=== PATIENT | male | born 1960 | race Caucasian/White ===

== ENCOUNTER → 2022-06-13 | Outpatient (CLI) | payer OTHER ==
[2022-06-13 17:13] LABS: African American GFR (CKD) >90 (>60 ml/min/1.73 sqM); Blood Urea Nitrogen 19 mg/dL (9-20); Non-African American GFR(CKD) 87 (>60 ml/min/1.73 sqM)
--- NOTE | 2022-06-14 08:52 | CT ---
EXAMINATION TYPE: CT abdomen pelvis w con CT DLP: 1116 mGycm, Automated exposure control for dose reduction was used. DATE OF EXAM: 06/13/2022 5:41 PM COMPARISON: None CLINICAL INDICATION:Male, 62 years old with history of R63.4 WEIGHT LOSS; weight loss and loss of freya etite x6 months. TECHNIQUE: Axial CT of the abdomen and pelvis. Sagittal and coronal reformats were created on a [employer] workstation. Contrast used:100 mL of Isovue 370 with IV Contrast, Oral contrast used: without Oral Contrast FINDINGS: LOWER CHEST: Unremarkable ABDOMEN LIVER: Unremarkable GALLBLADDER AND BILE DUCTS: Layering increased densities within the lumen consistent with gallstones are present. PANCREAS: Unremarkable. SPLEEN: Unremarkable. ADRENAL GLANDS: Left adrenal gland indeterminate nodule measuring 15 mm KIDNEYS AND URETERS: No evidence of hydronephrosis or renal calculus. The ureters are unremarkable. PELVIS BLADDER: Unremarkable REPRODUCTIVE: Unremarkable. ABDOMEN & PELVIS STOMACH AND BOWEL: No evidence of bowel obstruction. Appendix is normal. Scattered clonic diverticula present. PERITONEUM: No evidence of pneumoperitoneum or free fluid. VASCULATURE: No evidence of aortic aneurysm. MUSCULOSKELETAL: No acute osseous abnormalities, mild multilevel disc degeneration changes seen throu ghout the spine. LYMPH NODES: Prominent mesenteric lymph nodes are seen in the left upper abdomen measuring up to 10 m m in short axis. There is Vera mesentery in this area. SOFT TISSUE/ABDOMINAL WALL: Right fat containing inguinal hernia. IMPRESSION: 1. 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 Consider short-term follow-up and correlation with priors at outside institution. 2. Cholelithiasis. 3. Left adrenal gland 15 mm nodule which can be further evaluated with noncontrast CT and/or MRI wit h and without IV contrast. 4. Colonic diverticulosis.
== END | disposition home or self-care (01) ==
LOC: RADCTMAIN 15:28
PROVIDERS: ATTEND Internal Medicine
DX: K80.20 Calculus of gallbladder without cholecystitis without obstruction (principal); K57.30 Diverticulosis of large intestine without perforation or abscess without bleeding; E27.9 Disorder of adrenal gland, unspecified
CPT/HCPCS: 82565; 84520; 74177; 36415; Q9967

== ENCOUNTER → 2023-10-13 | Outpatient (CLI) | payer OTHER ==
--- NOTE | 2023-10-14 14:41 | MR ---
EXAMINATION TYPE: MR abdomen wo/w con DATE OF EXAM: 10/13/2023 7:43 AM CLINICAL INDICATION:Male, 63 years old with history of D35.02 BENIGN NEOPLASM OF LEFT ADRENAL GLANDK8 0.20; [facility], Abnormal CT, left adrenal mass, cholelithiasis COMPARISON: CT scan abdomen from 06/13/2022. TECHNIQUE: Multiplanar multi-sequence imaging was performed without contrast. Post contrast imaging was performed. Post IV contrast subtraction images were also submitted for review. IV Contrast: 7 cc Gadavist FINDINGS: LOWER CHEST: The heart is mildly enlarged for size. ABDOMEN Liver: No evidence for hepatic steatosis or cirrhosis. Gallbladder and Bile ducts: No evidence for ductal dilation, or biliary stricture or evidence of chol edocholithiasis. Multiple gallstones are layering in the gallbladder lumen. Pancreas: No ductal dilat ion. No evidence for solid mass. Spleen: Normal for size. Adrenal glands: There is a left adrenal nodule measuring 13 x 9 mm. Not significantly changed size da ting back to 06/13/2022. There is signal dropout on chemical shift of phase imaging. Kidneys: No evidence for obstructive uropathy. No suspicious renal masses. Stomach and Bowel: No evidence for bowel wall thickening or evidence for obstruction.. Peritoneum: No evidence of pneumoperitoneum or free fluid. Vasculature: No aortic aneurysm. Musculoskeletal: The osseous structures appear intact. Lymph Nodes: No gross evidence for lymphadenopathy. Abdominal wall: Unremarkable. IMPRESSION: 1. 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 2. No acute abdominal process. 3. Mild cardiomegaly.
== END | disposition home or self-care (01) ==
LOC: RADMRIMAIN 06:42
PROVIDERS: ATTEND Internal Medicine
DX: I51.7 Cardiomegaly (principal); D35.02 Benign neoplasm of left adrenal gland; K80.20 Calculus of gallbladder without cholecystitis without obstruction
CPT/HCPCS: 74183; A9585